=== PATIENT | female | born 1970 | race Caucasian/White ===

== ENCOUNTER 2020-06-25 23:29 | Observation (INO) ==
[2020-06-26] MEDS ORDERED: FAMOTIDINE 20MG IV PUSH 20 MG/5 ML SYR IV STA (00:14)
[2020-06-26] MEDS ORDERED: GI COCKTAIL ED USE PO ONE (00:14)
[2020-06-26] MEDS ORDERED: SODIUM CHLORIDE 0.9% 1000ML 1,000 ML IV SCH ×2 (00:15→10:21)
--- NOTE | 2020-06-26 01:06 | Emergency Department Note ---
History of Present Illness General Chief complaint: Illness Stated complaint: HEARTBURN Time Seen by Provider: 06/26/20 00:03 History of Present Illness Maximum Pain Intensity: 4 This is a 50-year-old female presenting to the emergency department for evaluation of epigastric pain radiating into her chest and neck for the past 24 hours. Patient states that she does have a history of GERD, and her symptoms do feel similar to previous exacerbations, however not for this length of time. She does take Pepcid on a daily basis, and contacted her primary care physician this afternoon who recommended additional [id number] medication which has not helped. The patient has not had shortness of breath, dyspnea, lower abdominal pain, fevers, or chills. She rates her current discomfort a 4/10. Last menstrual period was a week ago and she denies chance of . She does not have significant personal or family history of diabetes, early cardiac disease, or pulmonary disease. She has not had any recent travel history. Home Medications Medication Instructions Recorded Confirmed Type bupropion HCl 150 mg PO QAM 06/26/20 06/26/20 History bupropion HCl 300 mg PO QAM 06/26/20 06/26/20 History cetirizine [Zyrtec] 10 mg PO DAILY PRN 06/26/20 06/26/20 History famotidine 40 mg PO BID 06/26/20 06/26/20 History fluoxetine 20 mg PO QAM 06/26/20 06/26/20 History levothyroxine 112 mcg PO QAM 06/26/20 06/26/20 History liothyronine 25 mcg PO QAM 06/26/20 06/26/20 History multivitamin 1 tab PO QAM 06/26/20 06/26/20 History propranolol 40 mg PO BID 06/26/20 06/26/20 History Allergies Allergy/AdvReac Type Severity Reaction Status Date / Time SEASONAL Allergy Intermediate ITCHY Uncoded 06/26/20 01:13 EYES, SNEEZING, CONGESTION Past Med/Surg History Medical History (Updated 06/26/20 @ 06:21 by Noel Huerta PA-C) GERD (gastroesophageal reflux disease) Surgical History (Updated 06/26/20 @ 01:06 by Noel Huerta PA-C) No significant past surgical history Social History Smoking Status: Never smoker Feels Safe at Home: Yes Review of Systems A total of 10 systems reviewed and were otherwise negative Physical Exam Vital Signs Vital Signs - 24 hr 06/25/20 23:32 06/26/20 00:05 06/26/20 00:07 Temperature 36.5 C Temperature Source Temporal Artery Scan Pulse Rate 77 65 69 Pulse Rate from SpO2 Sensor 64 68 Respiratory Rate 16 20 16 Blood Pressure 188/71 H 181/89 H Blood Pressure Mean 110 119 Pulse Oximetry 96 98 98 Oxygen Delivery Method Sepsis Recent Fever Within 48 Hours No Sepsis New/Unexplained Change in Mental Status No Sepsis Action Taken by Nursing No Action Required 06/26/20 00:20 06/26/20 00:31 06/26/20 00:40 Temperature Temperature Source Pulse Rate 58 L 58 L 60 Pulse Rate from SpO2 Sensor 58 L 58 L Respiratory Rate 22 19 20 Blood Pressure 159/70 H Blood Pressure Mean 99 Pulse Oximetry 98 98 Oxygen Delivery Method Sepsis Recent Fever Within 48 Hours Sepsis New/Unexplained Change in Mental Status Sepsis Action Taken by Nursing 06/26/20 01:00 06/26/20 01:01 06/26/20 01:20 Temperature Temperature Source Pulse Rate 62 59 L 58 L Pulse Rate from SpO2 Sensor 62 61 58 L Respiratory Rate 28 H 18 16 Blood Pressure 174/69 H Blood Pressure Mean 104 Pulse Oximetry 100 99 100 Oxygen Delivery Method Sepsis Recent Fever Within 48 Hours Sepsis New/Unexplained Change in Mental Status Sepsis Action Taken by Nursing 06/26/20 01:23 06/26/20 01:30 06/26/20 01:40 Temperature Temperature Source Pulse Rate 60 64 Pulse Rate from SpO2 Sensor 58 L 64 Respiratory Rate 13 20 Blood Pressure 179/89 H Blood Pressure Mean 119 Pulse Oximetry 100 100 100 Oxygen Delivery Method Room Air Sepsis Recent Fever Within 48 Hours Sepsis New/Unexplained Change in Mental Status Sepsis Action Taken by Nursing 06/26/20 02:00 06/26/20 02:22 06/26/20 02:24 Temperature Temperature Source Pulse Rate 62 65 Pulse Rate from SpO2 Sensor 60 66 65 Respiratory Rate 14 18 Blood Pressure 178/108 H 175/85 H Blood Pressure Mean 131 115 Pulse Oximetry 99 100 100 Oxygen Delivery Method Sepsis Recent Fever Within 48 Hours Sepsis New/Unexplained Change in Mental Status Sepsis Action Taken by Nursing 06/26/20 02:30 06/26/20 03:00 06/26/20 03:30 Temperature Temperature Source Pulse Rate 64 61 79 Pulse Rate from SpO2 Sensor 64 63 67 Respiratory Rate 17 22 18 Blood Pressure 170/85 H 172/82 H 177/96 H Blood Pressure Mean 113 112 123 Pulse Oximetry 100 99 100 Oxygen Delivery Method Sepsis Recent Fever Within 48 Hours Sepsis New/Unexplained Change in Mental Status Sepsis Action Taken by Nursing 06/26/20 05:30 06/26/20 06:30 Temperature Temperature Source Pulse Rate 62 61 Pulse Rate from SpO2 Sensor 61 Respiratory Rate 18 15 Blood Pressure 159/90 H 156/82 H Blood Pressure Mean 113 106 Pulse Oximetry 95 95 Oxygen Delivery Method Room Air Sepsis Recent Fever Within 48 Hours Sepsis New/Unexplained Change in Mental Status Sepsis Action Taken by Nursing VITALS: Vitals are noted on the nurse's note and reviewed by myself. Vital signs stable. GENERAL: Well-developed, well-nourished, white female, who is in no acute distress and resting comfortably. Patient is cooperative with the examination. HEAD: Normocephalic atraumatic. NECK: Supple without nuchal rigidity. No lymphadenopathy. No thyromegaly. Cervical spine is nontender. HEART: Regular rate and rhythm without murmurs gallops or rubs. LUNGS: Clear to auscultation bilaterally without wheezes, rales or rhonchi. No retractions or accessory muscle use. ABDOMEN: Positive normal bowel sounds x 4. Soft with mild epigastric tenderness. No rebound or guarding. No lower abdominal tenderness. No CVA tenderness. MUSCULOSKELETAL: No muscle atrophy, erythema, or edema noted. Full range of motion in all extremities. NEURO: Patient was alert and oriented to person place and time. CN II through XII grossly intact. Course Administered Medications Morphine Sulfate (Morphine Sulfate 4 Mg/Ml 1 Ml Carp\Vial) 4 mg IV Q1H PRN PRN Reason: Pain Stop: 07/10/20 03:45 Last Admin: 06/26/20 06:45 Dose: 4 mg Documented by: [id number] Admin: 06/26/20 04:20 Dose: 4 mg Documented by: [id number] Discontinued Medications Al Hydrox/Mg Hydrox/Simethicone (Gi Cocktail Ed Use) 1 dose PO ONE ONE Stop: 06/26/20 00:15 Last Admin: 06/26/20 00:58 Dose: 1 dose Documented by: [id number] Sodium Chloride (Nss 1000ml) 1,000 mls @ 999 mls/hr IV .Q1H1M REAGAN Stop: 06/26/20 01:15 Last Infusion: 06/26/20 02:27 Dose: 0 mls/hr Documented by: [id number] Admin: 06/26/20 00:58 Dose: 999 mls/hr Documented by: [id number] Famotidine (Pepcid 20mg Iv Push) 20 mg in 5 mls @ 2.5 mls/min IV NOW STA Stop: 06/26/20 00:15 Last Admin: 06/26/20 00:58 Dose: 2.5 mls/min Documented by: [id number] Ioversol (Optiray 320 125ml) 119 ml IV ONCE ONE Stop: 06/26/20 02:23 Last Admin: 06/26/20 02:22 Dose: 119 ml Documented by: [id number] Ondansetron HCl (Ondansetron Inj 2 Mg/Ml 2 Ml Vial) 4 mg IV NOW STA Stop: 06/26/20 04:19 Last Admin: 06/26/20 04:20 Dose: 4 mg Documented by: [id number] Medical Decision Making Differential Diagnosis Differential diagnosis includes, but is not limited to: Myocardial infarction, dysrhythmia, pericarditis, pneumothorax, aortic aneurysm/dissection, DVT/PE, anxiety, GERD, PUD, electrolyte imbalance, thyroid disorder, pneumonia, bronchitis, pancreatitis, and others Laboratory Data Result diagrams: 06/26/20 00:45 06/26/20 00:45 Lab Results 06/26/20 06/26/20 06/26/20 Range/Units 00:45 00:45 00:45 WBC 17.29 H (4.8-10.8) K/uL RBC 4.07 L (4.2-5.4) M/uL Hgb 12.5 (12.0-16.0) g/dL Hct 36.3 L (37-47) % MCV 89.2 (80-100) fL MCH 30.7 (25-34) pg MCHC 34.4 (32-36) g/dL Plt Count 372 (130-400) K/uL Immature Gran % (Auto) 0.2 % Neut % (Auto) 78.2 % Lymph % (Auto) 14.3 % [place] % (Auto) 6.8 % Eos % (Auto) 0.3 % Baso % (Auto) 0.2 % Neut # (Auto) 13.53 H (1.4-6.5) K/uL Lymph # (Auto) 2.47 (1.2-3.4) K/uL [place] # (Auto) 1.17 H (0.11-0.59) K/uL Eos # (Auto) 0.05 (0-0.5) K/uL Baso # (Auto) 0.03 (0-0.2) K/uL Immature Gran # (Auto) 0.04 H (0.00-0.02) K/uL PT 9.6 (9.0-12.0) Seconds INR 0.9 (0.9-1.1) APTT 24.8 (21.0-31.0) Seconds PTT Ratio 0.9 D-Dimer 1690 H* (0-500) ug/L FEU Sodium 139 (136-145) mmol/L Potassium 3.1 L (3.5-5.1) mmol/L Chloride 105 (98-107) mmol/L Carbon Dioxide 26 (21-32) mmol/L Anion Gap 8.0 (3-11) BUN 8 (7-18) mg/dl Creatinine 0.85 (0.6-1.2) mg/dl Est Cr Clr Drug Dosing 93.8 ml/min Est GFR ( Amer) 92.0 Est GFR (Non-Af Amer) 79.3 BUN/Creatinine Ratio 9.9 L (10-20) Glucose 109 H (70-99) mg/dl Calcium 8.7 (8.5-10.1) mg/dl Magnesium 2.2 (1.8-2.4) mg/dl Total Bilirubin 0.6 (0.2-1) mg/dl AST 11 L (15-37) U/L ALT 18 (12-78) U/L Alkaline Phosphatase 103 (45-117) U/L Troponin I < 0.015 (0-0.045) ng/ml Total Protein 7.7 (6.4-8.2) gm/dl Albumin 3.8 (3.4-5.0) gm/dl Globulin 3.9 (2.5-4.0) gm/dl Albumin/Globulin Ratio 1.0 (0.9-2) Lipase 118 (73-393) U/L TSH 5.330 H (0.300-4.500) uIu/ml Free T4 0.78 L (0.8-1.6) ng/dl Imaging Data Radiologist's Impression: Preliminary Findings Only See Final Report For Complete Findings CTA CHEST: No evidence of pulmonary emboli or acute cardiopulmonary process. Preliminary Findings Only See Final Report For Complete Findings CT ABDOMEN & PELVIS With Contrast: Distended gallbladder with gallstones. No surrounding edema or fluid. No g allbladder wall thickening by CT. Otherwise unremarkable exam. Preliminary Findings Only See Final Report For Complete Findings US RUQ: Distended gallbladder with gallstones and gallbladder wall thickening at 4.6 mm. No surrounding fluid. No evidence of bile duct dilatation. ECG Data Attestation: I personally reviewed and interpreted this ECG as follows: Indication: + abdominal pain Additional Comments: Normal sinus rhythm @[address] elevation Normal ECG No previous ECGs available MDM Narrative Physical exam and history were performed. Nursing notes, EMR, and Medication List were personally reviewed. Patient appears to have epigastric abdominal/chest pain bringing her to the ER. She does not appear grossly toxic on examination and is afebrile. There is some reproducible discomfort in this area. IV access was established and labs were obtained. The patient was hydrated normal saline and given IV Pepcid and a GI cocktail. An order was placed for continuous cardiac monitoring. The monitor shows a rate of 79 with normal sinus rhythm. The patient's blood work is as above and was reviewed. She has a notably elevated white blood cell count of 17,000. She does not have a significant anemia or gross electrolyte imbalance. She does have increased neutrophils. INR is 0.9. Lipase and transaminases are not diagnostic. Glucose is 109. The patient does have a negative troponin x1. Her D-dimer is nearly 1700, and because of the elevated dimer and elevated white blood cell count I did elect to perform CT scan of both the chest as well as the abdomen and pelvis. CT scans were reviewed by myself and radiology. She does not appear to have acute findings within the chest, however she does appear to have a distended gallstone with cholelithiasis. Ultrasound was then performed and continues to raise concern for possible biliary etiology as she has a distended gallbladder with gallstones and wall thickening at 4.6 mm. Clinically her symptoms are concerning for biliary colic, and with the elevated white blood cell count I am concerned for developing cholecystitis. The case was discussed with the on-call surgeon, Dr. Patel, who agreed to evaluate the patient here in the emergency department. Please see his dictation for further patient course, plan, and disposition. The chart was completed utilizing [email or web address] Voice Recognition Software. Grammatical errors, random word insertions, pronoun errors, and incomplete sentences are an occasional consequence of this system due to software limitations, ambient noise, and hardware issues. Any formal questions or concerns about the content, text, or information contained within the body of this dictation should be directly addressed to the provider for clarification. . Impression & Plan Biliary colic, Epigastric abdominal pain, Elevated WBC count Discharge Plan Visit Data Chief Complaint: Illness Stated Complaint: HEARTBURN ED Provider: Cally Sy ED Midlevel Provider: Noel Huerta Discharge Problem: Biliary colic, Epigastric abdominal pain, Elevated WBC count Patient Disposition: Being Evaluated by Surgeon Forms Stand Alone Forms: [facility] Prescriptions Prescriptions: No Action cetirizine [Zyrtec] 10 mg Tablet 10 mg PO DAILY PRN (Reason: SEASONAL ALLERGIES) RF: 0 liothyronine 25 mcg tablet 25 mcg PO QAM RF: 0 famotidine 40 mg tablet 40 mg PO BID RF: 0 propranolol 40 mg tablet 40 mg PO BID RF: 0 fluoxetine 20 mg capsule 20 mg PO QAM RF: 0 levothyroxine 112 mcg tablet 112 mcg PO QAM RF: 0 bupropion HCl 300 mg tablet extended release 24 hr 300 mg PO QAM RF: 0 bupropion HCl 150 mg tablet extended release 24 hr 150 mg PO QAM RF: 0 multivitamin Tablet 1 tab PO QAM RF: 0 Referrals Referrals: Catie Goodson DO [Primary Care Provider] -
[2020-06-26 01:24] LABS: INR 0.9 (0.9-1.1); Partial Thromboplastin Ratio 0.9; Partial Thromboplastin Time 24.8 Seconds (21.0-31.0); Prothrombin Time 9.6 Seconds (9.0-12.0)
[2020-06-26 01:29] LABS: Alanine Aminotransferase 18 U/L (12-78); Albumin Level 3.8 gm/dl (3.4-5.0); Aspartate Aminotransferase 11 U/L (15-37); BUN Creatinine Ratio 9.9 (10-20); Basophils # (auto) 0.03 K/uL (0-0.2); Basophils % (auto) 0.2 %; Blood Urea Nitrogen 8 mg/dl (7-18); Calcium 8.7 mg/dl (8.5-10.1); Carbon Dioxide 26 mmol/L (21-32); Chloride 105 mmol/L (98-107); Creatinine Clr Calc Pharmacy 93.8 ml/min; Eosinophils # (auto) 0.05 K/uL (0-0.5); Eosinophils % (auto) 0.3 %; Est GFR (Non-African American) 79.3; Glucose 109 mg/dl (70-99); Hematocrit (blood only) 36.3 % (37-47); Hemoglobin 12.5 g/dL (12.0-16.0); Immature Granulocytes # (auto) 0.04 K/uL (0.00-0.02); Immature Granulocytes % (auto) 0.2 %; Lipase 118 U/L (73-393); Lymphocytes # (auto) 2.47 K/uL (1.2-3.4); Lymphocytes % (auto) 14.3 %; Magnesium 2.2 mg/dl (1.8-2.4); Mean Corpuscular Hemoglobin 30.7 pg (25-34); Mean Corpuscular Hgb Conc 34.4 g/dL (32-36); Mean Corpuscular Volume 89.2 fL (80-100); Monocytes # (auto) 1.17 K/uL (0.11-0.59); Monocytes % (auto) 6.8 %; Neutrophils # (auto) 13.53 K/uL (1.4-6.5); Neutrophils % (auto) 78.2 %; Platelet Count 372 K/uL (130-400); Potassium 3.1 mmol/L (3.5-5.1); Red Blood Count 4.07 M/uL (4.2-5.4); Sodium 139 mmol/L (136-145); White Blood Count 17.29 K/uL (4.8-10.8)
[2020-06-26 01:37] LABS: D Dimer 1690 ug/L FEU (0-500)
[2020-06-26 01:40] LABS: Alkaline Phosphatase 103 U/L (45-117); Bilirubin,Total 0.6 mg/dl (0.2-1); Globulin 3.9 gm/dl (2.5-4.0); Total Protein 7.7 gm/dl (6.4-8.2); Troponin I < 0.015 ng/ml (0-0.045)
[2020-06-26 01:53] LABS: T4 Free Thyroxine 0.78 ng/dl (0.8-1.6)
[2020-06-26] MEDS ORDERED: OPTIRAY 320 125ml IV ONE (02:22)
[2020-06-26] MEDS ORDERED: ONDANSETRON INJ 2 MG/ML 2 ML VIAL IV STA (04:18)
[2020-06-26] MEDS: MoRPHine SULFATE 4 MG/ML 1 ML CARP\\VIAL IV PRN ×3 (04:20→11:50)
--- NOTE | 2020-06-26 07:11 | CT Scan Report ---
CT OF THE ABDOMEN AND PELVIS WITH CONTRAST CLINICAL HISTORY: epigastric abd pain. Leukocytosis. COMPARISON STUDY: None. TECHNIQUE: Following IV administration of 119 mL of Optiray-320, axial images of the abdomen and pelv is were obtained from the lung bases to the proximal femurs. Images were reviewed in the axial, sagit claudio, and coronal planes. IV contrast was administered without complication. Automated exposure contr ol was utilized for the study. A dose lowering technique was utilized adhering to the principles of ALARA. CT DOSE: 1932.70 mGy.cm FINDINGS: Please note that the chest CT will be reported separately. No pneumatosis, free air or port al venous gas is present. The liver, spleen, adrenal glands, kidneys and pancreas are unremarkable. E xcreted contrast within the collecting systems is noted. The gallbladder is distended. There are gall stones within the gallbladder. There is gallbladder wall thickening with minimal adjacent infiltratio n. There is no biliary or pancreatic ductal dilatation patient. Major vasculature is patent. The salena leo and wall thickness of small and large bowel are normal. The appendix is normal. No acute fracture or suspicious lesion is identified within the visualized skeletal structures. IMPRESSION: Findings highly suggestive of acute cholecystitis. Findings discussed with Noel Huerta at time of dictation. ACT 112: Negative or not required by law. Electronically signed by: Benny Pierre M.D. 06/26/2020 7:09 AM
--- NOTE | 2020-06-26 07:18 | CT Scan Report ---
CHEST CTA for PULMONARY ARTERIES CT DOSE: HISTORY: Atypical chest pain. Elevated d-dimer. TECHNIQUE: Multiaxial CT images of the chest were performed following the intravenous administration of contrast to evaluate the pulmonary arteries. Maximal intensity projection images were also obtaine d. A dose lowering technique was utilized adhering to the principles of ALARA. COMPARISON STUDY: None. FINDINGS: Cholelithiasis with gallbladder wall thickening and trace pericholecystic fluid. This pari rning for acute cholecystitis. This is better appreciated on the same day abdomen and pelvis CT. The visualized adrenal glands and spleen are unremarkable. Normal esophagus. No mediastinal or hilar lymp hadenopathy. The heart is normal in size. No pleural or pericardial effusions. No suspicious lytic or blastic osseous lesions. The central airways are patent. The lungs are clear. Normal caliber thoraci c aorta with no evidence for dissection. No filling defects within the pulmonary arteries to suggest pulmonary embolus. IMPRESSION: 1. No evidence for pulmonary embolus. 2. Abnormal appearance to the gallbladder concerning for acute cholecystitis. This is better apprecia jeromy on the same day abdomen and pelvis CT. ACT 112: Negative or not required by law. Electronically signed by: Ham Lewis M.D. 06/26/2020 7:17 AM
--- NOTE | 2020-06-26 07:49 | XRay Report ---
XR chest 1V portable HISTORY: Right-sided chest pains. COMPARISON: None. FINDINGS: The lungs are clear. Cardiac silhouette is normal in size. No pleural effusions. No pneumot horax. IMPRESSION: No acute process. ACT 112: Negative or not required by law. Electronically signed by: Ham Lewis M.D. 06/26/2020 7:47 AM
--- NOTE | 2020-06-26 08:22 | Ultrasound Report ---
ULTRASOUND RIGHT UPPER QUADRANT ABDOMEN CLINICAL HISTORY: Epigastric abdominal pain. COMPARISON STUDY: Abdominal CT dated 06/26/2020. TECHNIQUE: Real-time, grayscale, and color flow sonography of the right upper quadrant of the abdomen was performed. Images are reviewed in the transverse and longitudinal planes. FINDINGS: Liver: The liver is normal in size and echotexture. There is no intrahepatic biliary ductal dilatatio n. The main portal vein is patent. Gallbladder: The gallbladder is distended and contains large shadowing calcified gallstones and bilia ry sludge. The gallbladder measures over 9 cm in length. The gallbladder wall is thickened and edemat ous measuring up to 5 mm. No pericholecystic fluid is seen. A sonographic Howard's sign could not be assessed as the patient reportedly received analgesia. The common bile duct measures up to 0.4 cm in diameter. Pancreas: Visualized portions of the pancreatic head and body are normal in appearance. Right kidney: Survey images of the right kidney demonstrate normal size and echotexture. There is no hydronephrosis. Ascites: None. IMPRESSION: 1. Cholelithiasis within a distended gallbladder. The gallbladder wall is thickened and edematous, an d findings are highly concerning for acute cholecystitis. Surgical consultation is advised. 2. There is no intra or extrahepatic biliary ductal dilatation. ACT 112: Negative or not required by law. Electronically signed by: Mateusz Harrell M.D. 06/26/2020 8:20 AM
--- NOTE | 2020-06-26 08:48 | History & Physical Report ---
Date of Service June 26, 2020 Assessment & Plan (1) Cholecystitis with cholelithiasis: Admission and Anticipated Discharge Date Admission Date: This patient's history of intermittent discomfort after eating fatty foods is consistent with biliary colic. By CT scan exam and ultrasound she now has most likely cholecystitis. Her white count is also elevated. I recommended removing her gallbladder. I explained the laparoscopic procedure and the possible need convert to an open procedure. I explained the possible complications associated with the procedure and answered her questions. She has signed a consent form. In the meantime we will put her in the hospital. Will splint analgesics as well as antibiotics. History of Present Illness Chief Complaint: Right upper quadrant abdominal pain Primary Care Provider: Catie Goodson DO This is a 50-year-old female who presented to the emergency room on recommendation from her primary care physician with a complaint of pain centered in the right upper quadrant. The patient for the last approximately 2 to 3 months has been having intermittent episodes of discomfort that she thought was indigestion. It did follow meals each time and fatty foods were worse than others. They would resolve after about the 2-hour timeframe however this most recent episode has not resolved. This episode began midnight 2 days ago. The pain is a dull pressure-like sensation with occasional increases in intensity and change to a sharp component. It is unrelenting. She had some nausea and had one episode of vomiting after being in the emergency room. She has not had a change in her bowel habits. She denies melena and hematochezia. She has no dysuria or hematuria. She was unaware of the fact that she had gallstones. Allergies Allergy/AdvReac Type Severity Reaction Status Date / Time SEASONAL Allergy Intermediate ITCHY Uncoded 06/26/20 01:13 EYES, SNEEZING, CONGESTION Home Medications Medication Instructions Recorded Confirmed Type bupropion HCl 150 mg PO QAM 06/26/20 06/26/20 History bupropion HCl 300 mg PO QAM 06/26/20 06/26/20 History cetirizine [Zyrtec] 10 mg PO DAILY PRN 06/26/20 06/26/20 History famotidine 40 mg PO BID 06/26/20 06/26/20 History fluoxetine 20 mg PO QAM 06/26/20 06/26/20 History levothyroxine 112 mcg PO QAM 06/26/20 06/26/20 History liothyronine 25 mcg PO QAM 06/26/20 06/26/20 History multivitamin 1 tab PO QAM 06/26/20 06/26/20 History propranolol 40 mg PO BID 06/26/20 06/26/20 History Past Med/Surg History Medical History (Updated 06/26/20 @ 08:50 by Kemar Patel MD) Depression GERD (gastroesophageal reflux disease) Hypothyroidism Surgical History (Updated 06/26/20 @ 08:46 by Kemar Patel MD) Presence of tooth-root and mandibular implants Social History Smoking Status: Never smoker Feels Safe at Home: Yes Review of Systems Review of Systems: All systems reviewed & are unremarkable except as noted in HPI & below Physical Exam Constitutional: no acute distress Neck: trachea midline Respiratory: normal respiratory effort, lungs clear to auscultation Cardiovascular: Rate/Rhythm: regular rate and regular rhythm Gastrointestinal (Abdomen): Inspection/Auscultation: normal bowel sounds; abdomen not distended Percussion/Palpation: + abdomen tender (Mild tenderness to moderate palpation in the right subcostal region) and abdomen soft Skin: no rashes, warm and dry Lymphatic: no cervical lymphadenopathy Results & Data Results & Data ([facility]) Vital Signs (Past 12 Hours) Vital Signs Temp Pulse Resp BP Pulse Ox 06/26/20 06:30 61 15 156/82 H 95 06/26/20 05:30 62 18 159/90 H 95 06/26/20 03:30 79 18 177/96 H 100 06/26/20 03:00 61 22 172/82 H 99 06/26/20 02:30 64 17 170/85 H 100 06/26/20 02:24 65 18 175/85 H 100 06/26/20 02:22 100 06/26/20 02:00 62 14 178/108 H 99 06/26/20 01:40 64 20 100 06/26/20 01:30 60 13 179/89 H 100 06/26/20 01:23 100 06/26/20 01:20 58 L 16 100 06/26/20 01:01 59 L 18 174/69 H 99 06/26/20 01:00 62 28 H 100 06/26/20 00:40 60 20 06/26/20 00:31 58 L 19 159/70 H 98 06/26/20 00:20 58 L 22 98 06/26/20 00:07 69 16 98 06/26/20 00:05 65 20 181/89 H 98 06/25/20 23:32 36.5 C 77 16 188/71 H 96 Laboratory Results 06/26/20 06/26/20 06/26/20 Range/Units 08:01 08:01 00:45 WBC (4.8-10.8) K/uL RBC (4.2-5.4) M/uL Hgb (12.0-16.0) g/dL Hct (37-47) % MCV (80-100) fL MCH (25-34) pg MCHC (32-36) g/dL Plt Count (130-400) K/uL Immature Gran % (Auto) % Neut % (Auto) % Lymph % (Auto) % [place] % (Auto) % Eos % (Auto) % Baso % (Auto) % Neut # (Auto) (1.4-6.5) K/uL Lymph # (Auto) (1.2-3.4) K/uL [place] # (Auto) (0.11-0.59) K/uL Eos # (Auto) (0-0.5) K/uL Baso # (Auto) (0-0.2) K/uL Immature Gran # (Auto) (0.00-0.02) K/uL PT (9.0-12.0) Seconds INR (0.9-1.1) APTT (21.0-31.0) Seconds PTT Ratio D-Dimer (0-500) ug/L FEU Sodium 139 (136-145) mmol/L Potassium 3.1 L (3.5-5.1) mmol/L Chloride 105 (98-107) mmol/L Carbon Dioxide 26 (21-32) mmol/L Anion Gap 8.0 (3-11) BUN 8 (7-18) mg/dl Creatinine 0.85 (0.6-1.2) mg/dl Est Cr Clr Drug Dosing 93.8 ml/min Est GFR ( Amer) 92.0 Est GFR (Non-Af Amer) 79.3 BUN/Creatinine Ratio 9.9 L (10-20) Glucose 109 H (70-99) mg/dl Calcium 8.7 (8.5-10.1) mg/dl Magnesium 2.2 (1.8-2.4) mg/dl Total Bilirubin 0.6 (0.2-1) mg/dl AST 11 L (15-37) U/L ALT 18 (12-78) U/L Alkaline Phosphatase 103 (45-117) U/L Troponin I < 0.015 (0-0.045) ng/ml Total Protein 7.7 (6.4-8.2) gm/dl Albumin 3.8 (3.4-5.0) gm/dl Globulin 3.9 (2.5-4.0) gm/dl Albumin/Globulin Ratio 1.0 (0.9-2) Lipase 118 (73-393) U/L TSH 5.330 H (0.300-4.500) uIu/ml Free T4 0.78 L (0.8-1.6) ng/dl COVID-19 Eval [facility] SARS-CoV-2, RNA, NAAT NEGATIVE (NEGATIVE) 06/26/20 06/26/20 Range/Units 00:45 00:45 WBC 17.29 H (4.8-10.8) K/uL RBC 4.07 L (4.2-5.4) M/uL Hgb 12.5 (12.0-16.0) g/dL Hct 36.3 L (37-47) % MCV 89.2 (80-100) fL MCH 30.7 (25-34) pg MCHC 34.4 (32-36) g/dL Plt Count 372 (130-400) K/uL Immature Gran % (Auto) 0.2 % Neut % (Auto) 78.2 % Lymph % (Auto) 14.3 % [place] % (Auto) 6.8 % Eos % (Auto) 0.3 % Baso % (Auto) 0.2 % Neut # (Auto) 13.53 H (1.4-6.5) K/uL Lymph # (Auto) 2.47 (1.2-3.4) K/uL [place] # (Auto) 1.17 H (0.11-0.59) K/uL Eos # (Auto) 0.05 (0-0.5) K/uL Baso # (Auto) 0.03 (0-0.2) K/uL Immature Gran # (Auto) 0.04 H (0.00-0.02) K/uL PT 9.6 (9.0-12.0) Seconds INR 0.9 (0.9-1.1) APTT 24.8 (21.0-31.0) Seconds PTT Ratio 0.9 D-Dimer 1690 H* (0-500) ug/L FEU Sodium (136-145) mmol/L Potassium (3.5-5.1) mmol/L Chloride (98-107) mmol/L Carbon Dioxide (21-32) mmol/L Anion Gap (3-11) BUN (7-18) mg/dl Creatinine (0.6-1.2) mg/dl Est Cr Clr Drug Dosing ml/min Est GFR ( Amer) Est GFR (Non-Af Amer) BUN/Creatinine Ratio (10-20) Glucose (70-99) mg/dl Calcium (8.5-10.1) mg/dl Magnesium (1.8-2.4) mg/dl Total Bilirubin (0.2-1) mg/dl AST (15-37) U/L ALT (12-78) U/L Alkaline Phosphatase (45-117) U/L Troponin I (0-0.045) ng/ml Total Protein (6.4-8.2) gm/dl Albumin (3.4-5.0) gm/dl Globulin (2.5-4.0) gm/dl Albumin/Globulin Ratio (0.9-2) Lipase (73-393) U/L TSH (0.300-4.500) uIu/ml Free T4 (0.8-1.6) ng/dl COVID-19 Eval Order SARS-CoV-2, RNA, NAAT (NEGATIVE) Diagnostic Findings CT OF THE ABDOMEN AND PELVIS WITH CONTRAST CLINICAL HISTORY: epigastric abd pain. Leukocytosis. COMPARISON STUDY: None. TECHNIQUE: Following IV administration of 119 mL of Optiray-320, axial images of the abdomen and pelvis were obtained from the lung bases to the proximal femurs. Images were reviewed in the axial, sagittal, and coronal planes. IV contrast was administered without complication. Automated exposure control was utilized for the study. A dose lowering technique was utilized adhering to the principles of ALARA. CT DOSE: 1932.70 mGy.cm FINDINGS: Please note that the chest CT will be reported separately. No pneumatosis, free air or portal venous gas is present. The liver, spleen, adrenal glands, kidneys and pancreas are unremarkable. Excreted contrast within the collecting systems is noted. The gallbladder is distended. There are gallstones within the gallbladder. There is gallbladder wall thickening with minimal adjacent infiltration. There is no biliary or pancreatic ductal dilata tion patient. Major vasculature is patent. The caliber and wall thickness of small and large bowel are normal. The appendix is normal. No acute fracture or suspicious lesion is identified within the visualized skeletal structures. IMPRESSION: Findings highly suggestive of acute cholecystitis. Findings discussed with Noel Huerta at time of dictation. ULTRASOUND RIGHT UPPER QUADRANT ABDOMEN CLINICAL HISTORY: Epigastric abdominal pain. COMPARISON STUDY: Abdominal CT dated 06/26/2020. TECHNIQUE: Real-time, grayscale, and color flow sonography of the right upper quadrant of the abdomen was performed. Images are reviewed in the transverse and longitudinal planes. FINDINGS: Liver: The liver is normal in size and echotexture. There is no intrahepatic biliary ductal dilatation. The main portal vein is patent. Gallbladder: The gallbladder is distended and contains large shadowing calcified gallstones and biliary sludge. The gallbladder measures over 9 cm in length. The gallbladder wall is thickened and edematous measuring up to 5 mm. No pericholecystic fluid is seen. A sonographic Howard's sign could not be assessed as the patient reportedly received analgesia. The common bile duct measures up to 0.4 cm in diameter. Pancreas: Visualized portions of the pancreatic head and body are normal in appearance. Right kidney: Survey images of the right kidney demonstrate normal size and echotexture. There is no hydronephrosis. Ascites: None. IMPRESSION: 1. Cholelithiasis within a distended gallbladder. The gallbladder wall is thickened and edematous, and findings are highly concerning for acute cholecystitis. Surgical consultation is advised. 2. There is no intra or extrahepatic biliary ductal dilatation.
[2020-06-26] MEDS ORDERED: MoRPHine SULFATE 2 MG/ML CARP IV PRN (10:21)
[2020-06-26] MEDS ORDERED: ONDANSETRON INJ 2 MG/ML 2 ML VIAL IV PRN (10:21)
[2020-06-26 11:25] LABS: Appearance Urine Clear (Clear); Bilirubin Urine Negative (Negative); Blood Urine Negative (Negative); Color Urine Yellow; Glucose Urine UA Negative (Negative); Ketones Urine Negative (Negative); Leukocyte Esterase Urine Negative (Negative); Nitrite Urine Negative (Negative); Protein Urine Negative (Negative); Specific Gravity Urine > 1.045 (1.000-1.030); Urobilinogen Urine Negative (Negative); pH Urine 5.5 (4.5-7.5)
[2020-06-26] MEDS: cefOXitin 2,000 MG in DEXTROSE 5% 50 ML IV SCH ×2 (13:14→18:36)
[2020-06-26] MEDS: FAMOTIDINE 40 MG TABLET PO SCH ×2 (13:15→20:13)
[2020-06-26] MEDS: LEVOTHYROXINE SODIUM 112 MCG TABLET PO SCH (13:15)
[2020-06-26] MEDS: PROPRANOLOL HCL 20 MG TAB PO SCH ×2 (13:15→21:18)
[2020-06-26] MEDS: LIOTHYRONINE SODIUM 25 MCG TAB PO SCH (13:16)
[2020-06-26] MEDS: SODIUM CHLOR 0.45% + 20MEQ KCL 20 MEQ/1,000 ML BAG IV SCH (16:52)
--- NOTE | 2020-06-26 17:22 | Surgery Progress Note ---
Date of Service June 26, 2020 Assessment & Plan (1) Cholecystitis with cholelithiasis: Due to scheduling in the OR today and possible late delayed till later this evening we recommended to proceed with surgery but will wait until morning this was discussed with the patient and she is agreeable to it risk and complication of surgery including conversion to an open procedure injury to other organs anticipated recovery time was all explained to the patient Potassium was 3.1 this morning we changed her IV fluids All questions were answered Permit was signed Present on Admission?: Yes Admission and Anticipated Discharge Date Admission Date: June 26, 2020 Subjective Feels better from he first came in earlier this morning Physical Exam Physical Exam: Alert coherent comfortable sitting up at side of bed The abdomen is completely benign there is no guarding right upper quadrant Results & Data ([facility]) Vital Signs (Past 12 Hours) Vital Signs Temp Pulse Resp BP BP Pulse Ox 06/26/20 15:18 36.6 C 20 142/85 H 95 06/26/20 10:23 37.1 C 18 171/81 H 96 06/26/20 09:59 37.1 C 18 170/85 H 94 06/26/20 09:00 58 L 16 154/80 H 95 06/26/20 08:40 61 15 93 06/26/20 08:30 61 15 145/89 H 93 06/26/20 08:20 63 16 93 06/26/20 08:01 66 15 96 06/26/20 08:00 64 15 159/87 H 94 06/26/20 07:40 73 18 95 06/26/20 07:30 65 15 140/76 93 06/26/20 07:20 71 18 96 06/26/20 07:00 66 15 139/74 94 06/26/20 06:30 61 15 156/82 H 95 06/26/20 05:30 62 18 159/90 H 95 PG Care Time/CCT Total # of Minutes Spent Total Time Spent with Patient: Total time spent is greater than 50% in coordination of care (as documented) at patient's floor/unit and/or counseling patient: Coding Level of Care Code 98404 Subseq Hosp Care Lvl 1 Diagnoses Cholecystitis with cholelithiasis K80.10
--- NOTE | 2020-06-26 18:01 | Electrocardiogram Report ---
Test Reason : Blood Pressure : / mmHG Vent. Rate : 065 BPM Atrial Rate : 065 BPM P-R Int : 154 ms QRS Dur : 110 ms QT Int : 434 ms P-R-T Axes : 056 018 021 degrees QTc Int : 451 ms Normal sinus rhythm Normal ECG No previous ECGs available Confirmed by Colin Hendrix ([id number]) on 06/26/2020 6:01:17 PM Referred By: REFERRED SELF Confirmed By:Colin Hendrix
[2020-06-26 18:02] LABS: Pregnancy Test, Urine Negative (Negative)
[2020-06-26] MEDS ORDERED: hydrALAZINE HCL 20 MG/ML VIAL IV PRN (20:25)
[2020-06-27] MEDS: cefOXitin 2,000 MG in DEXTROSE 5% 50 ML IV SCH ×4 (01:14→18:01)
[2020-06-27] MEDS: SODIUM CHLOR 0.45% + 20MEQ KCL 20 MEQ/1,000 ML BAG IV SCH ×3 (01:14→21:11)
[2020-06-27] MEDS ORDERED: PROPOFOL IV EMULSION 10 MG/ML 20 ML VIAL IV ONE (06:49)
[2020-06-27] MEDS ORDERED: DEXAMETHASONE SOD INJ 4 MG/ML VIAL ONE (06:49)
[2020-06-27] MEDS ORDERED: MIDAZOLAM HCL 1 MG/ML 2ML VIAL ONE (06:49)
[2020-06-27] MEDS ORDERED: LIDOCAINE HCL 2% 2 ML VIAL/AMP(20MG/ML) INFIL ONE (06:49)
[2020-06-27] MEDS ORDERED: ONDANSETRON INJ 2 MG/ML 2 ML VIAL ONE (06:49)
[2020-06-27] MEDS ORDERED: fentaNYL citrate 100 MCG/2 ML VIAL ONE (06:49)
[2020-06-27] MEDS ORDERED: ROCURONIUM BROMIDE 10 MG/ML 5 ML VIAL IV ONE (06:49)
[2020-06-27] MEDS ORDERED: LIDOCAINE/EPINEPHRINE 1% 20 ML VIAL ONE (07:04)
[2020-06-27 07:08] LABS: BUN Creatinine Ratio 7.2 (10-20); Calcium 8.4 mg/dl (8.5-10.1); Creatinine Clr Calc Pharmacy 96.1 ml/min; Est GFR (Non-African American) 82.9; Potassium 3.9 mmol/L (3.5-5.1)
--- NOTE | 2020-06-27 07:08 | History & Physical Bridge Note ---
Date of Service June 27, 2020 History & Physical Bridge Note I have examined the patient, reviewed the History & Physical and in the interval since the performance of the History & Physical I have noted the following changes of clinical significance: no changes noted Patient pretty much had an uneventful night still has some right upper quadrant discomfort no nausea or vomiting abdominal exam unchanged from yesterday we will proceed with surgery as outlined yesterday they are going to call her from the OR soon
[2020-06-27] MEDS: FAMOTIDINE 40 MG TABLET PO SCH ×2 (07:13→20:08)
[2020-06-27] MEDS: LEVOTHYROXINE SODIUM 112 MCG TABLET PO SCH (07:14)
[2020-06-27] MEDS: LIOTHYRONINE SODIUM 25 MCG TAB PO SCH (07:14)
[2020-06-27] MEDS: PROPRANOLOL HCL 20 MG TAB PO SCH ×2 (07:14→20:08)
--- NOTE | 2020-06-27 07:20 | Anesthesiology Consultation ---
Date of Service June 27, 2020 Assessment & Plan (1) Encounter for pre-operative examination: Chart Review Chart Review: Acceptable Risk for Surgery History Surgery Operation Date: 06/27/20 07:30 Proposed Procedures p Laparoscopic Cholecystectomy with Cholangiogram - Bayron Vargas MD Height/Weight Height: 5 ft 6 in Weight: 98.5 kg Allergies Allergy/AdvReac Type Severity Reaction Status Date / Time SEASONAL Allergy Intermediate ITCHY Uncoded 06/26/20 01:13 EYES, SNEEZING, CONGESTION Medications Home Medications Medication Instructions Recorded Confirmed Last Taken bupropion HCl 150 mg PO QAM 06/26/20 06/26/20 06/25/20 bupropion HCl 300 mg PO QAM 06/26/20 06/26/20 06/25/20 cetirizine [Zyrtec] 10 mg PO DAILY PRN 06/26/20 06/26/20 Unknown famotidine 40 mg PO BID 06/26/20 06/26/20 06/25/20 08:00 fluoxetine 20 mg PO QAM 06/26/20 06/26/20 06/25/20 levothyroxine 112 mcg PO QAM 06/26/20 06/26/20 06/25/20 liothyronine 25 mcg PO QAM 06/26/20 06/26/20 06/25/20 multivitamin 1 tab PO QAM 06/26/20 06/26/20 06/25/20 propranolol 40 mg PO BID 06/26/20 06/26/20 06/25/20 08:00 Active Medications Generic Name Dose Route Start Last Admin Trade Name Freq PRN Reason Stop Dose Admin Famotidine 40 mg 06/26/20 11:45 06/27/20 07:13 Famotidine 40 Mg Tablet PO 07/26/20 11:44 40 mg BID REAGAN Administration Hydralazine HCl 10 mg 06/26/20 20:25 06/26/20 21:18 Hydralazine Hcl 20 Mg/Ml Vial IV 07/26/20 20:24 10 mg Q6H PRN Administration FOR SBP >150 Cefoxitin Sodium 2,000 mg/ 60 mls @ 100 mls/hr 06/26/20 12:00 06/27/20 06:22 Dextrose IV 07/06/20 11:59 Infused Q6H REAGAN Infusion Potassium Chloride/Sodium Chloride 20 meq in 1,000 mls @ 125 mls/hr 06/26/20 15:45 06/27/20 01:14 1/2 Nss + 20meq Kcl 1000ml IV 07/26/20 15:44 125 mls/hr .Q8H REAGAN Administration Levothyroxine Sodium 112 mcg 06/26/20 11:45 06/27/20 07:14 Levothyroxine Sodium 112 Mcg Tablet PO 07/26/20 11:44 112 mcg QAM REAGAN Administration Liothyronine Sodium 25 mcg 06/26/20 11:45 06/27/20 07:14 Liothyronine Sodium 25 Mcg Tab PO 07/26/20 11:44 25 mcg QAM REAGAN Administration Morphine Sulfate 4 mg 06/26/20 10:21 06/26/20 11:50 Morphine Sulfate 4 Mg/Ml 1 Ml Carp\Vial IV 07/10/20 10:20 4 mg Q3H PRN Administration Pain (6,7,8,9,10) Propranolol HCl 40 mg 06/26/20 11:45 06/27/20 07:14 Propranolol Hcl 20 Mg Tab PO 07/26/20 11:44 40 mg BID REAGAN Administration NPO Date Last Intake of Fluids: 06/26/20 Time Last Intake of Fluids: 23:59 Past Medical History Medical History (Updated 06/27/20 @ 07:19 by Dennis Camejo MD) Anemia Depression GERD (gastroesophageal reflux disease) Hypothyroidism Past Surgical History Surgical History Presence of tooth-root and mandibular implants Social History Smoking Status: Never smoker Hx Alcohol Use: Yes Alcohol type: beer, wine and hard liquor alcohol intake frequency: a few times a month Hx Substance Use: No substance use type: does not use Physical Exam Vital Signs Last Vital Signs Temp 36.9 C 06/27/20 01:31 Pulse 65 06/27/20 01:31 Resp 18 06/27/20 01:31 BP 139/80 06/27/20 01:31 Pulse Ox 98 06/27/20 01:31 Testing Laboratory Results 06/26/20 00:45 06/27/20 05:37 PT 9.6 Seconds (9.0-12.0) 06/26/20 00:45 INR 0.9 (0.9-1.1) 06/26/20 00:45 APTT 24.8 Seconds (21.0-31.0) 06/26/20 00:45 Urine Color Yellow 06/26/20 11:12 Urine Appearance Clear (Clear) 06/26/20 11:12 Urine pH 5.5 (4.5-7.5) 06/26/20 11:12 Ur Specific [place] > 1.045 (1.000-1.030) H 06/26/20 11:12 Urine Protein Negative (Negative) 06/26/20 11:12 Urine Glucose (UA) Negative (Negative) 06/26/20 11:12 Urine Ketones Negative (Negative) 06/26/20 11:12 Urine Nitrite Negative (Negative) 06/26/20 11:12 Ur Leukocyte Esterase Negative (Negative) 06/26/20 11:12 Urine Test Negative (Negative) 06/26/20 16:30 06/26/20 16:30 Urine Test Negative Electrocardiogram Date: 06/25/20 Findings: + NSR @ (65) Chest X-Ray Date: 06/26/20 Findings: + NAD
[2020-06-27] MEDS ORDERED: PROMETHAZINE HCL 12.5 MG in SODIUM CHLORIDE 0.9% 50 ML IV PRN (07:43)
[2020-06-27] MEDS ORDERED: ATROPINE SULFATE 0.1 MG/ML 10ML SYR IV PRN (07:43)
[2020-06-27] MEDS ORDERED: ONDANSETRON INJ 2 MG/ML 2 ML VIAL IV PRN (07:43)
[2020-06-27] MEDS ORDERED: fentaNYL citrate 100 MCG/2 ML VIAL IV PRN (07:43)
[2020-06-27] MEDS ORDERED: KETOROLAC 30 MG/ML VIAL IV PRN (07:43)
[2020-06-27] MEDS ORDERED: LABETALOL HCL IV 5 MG/ML 20ML IV PRN (07:43)
--- NOTE | 2020-06-27 09:46 | Post Operative Brief Note ---
PG Immediate Post Op with CF Date of Surgery June 27, 2020 Pre & Post Diagnosis Operation Date: 06/27/20 07:30 Pre-Op Diagnosis: Cholecystitis with cholelithiasis Post-Op Diagnosis: Cholecystitis with cholelithiasis I identified the patient and participated in the time-out.: Yes Procedure Operation Date: 06/27/20 07:30 Actual Procedures p Laparoscopic Cholecystectomy with Cholangiogram(Not Applicable) - Bayron Vargas MD Surgeon Bayron Vargas MD [employer] 0 Estimated Blood Loss 20 Findings Consistent with Post-Op Diagnosis Specimens Specimen Description: Permanent A. Gallbladder and contents Culture 1. Gallbladder culture
[2020-06-27] MEDS ORDERED: OPTIRAY 300 INJ ONE (09:52)
[2020-06-27] MEDS ORDERED: GLYCOPYRROLATE 0.2 MG/ML VIAL ONE (10:06)
[2020-06-27] MEDS ORDERED: NEOSTIGMINE METHYLSULFATE 5 MG/5 ML SYR ONE (10:06)
--- NOTE | 2020-06-27 10:06 | Operative Report ---
PG Post Operative Report Pre & Post Diagnosis Operation Date: 06/27/20 07:30 Pre-Op Diagnosis: Cholecystitis with cholelithiasis Post-Op Diagnosis: Cholecystitis with cholelithiasis I identified the patient and participated in the time-out.: Yes Procedure Operation Date: 06/27/20 07:30 Actual Procedures p Laparoscopic Cholecystectomy with Cholangiogram(Not Applicable) - Bayron Vargas MD The patient was brought into the operating theater general endotracheal anesthesia supine position the abdomen prepped byline solution properly draped a ntibiotics already on board timeout this had the patient was identified made a small incision supraumbilically sufficient enough to place a Veress needle followed by CO2 followed by 5 mm trocar point of interest back to no injury identified and the fractionization we placed a 5 mm epigastric port with 2 5 mm subcostal ports with preemptive local analgesic the patient had a quite a significant abdominal wall lipomatous tissue the needle was barely going through enter the abdomen the 5 Postel cords were all directly placed on direct visualization gallbladder was identified it was tense acutely inflamed using the lateral port really placed under traction the patient was placed in reverse Trendelenburg position rotated to the left but we felt that needed to be aspirated therefore the aspirating needle was positioned in the fundus of the gallbladder aspirated out was was thick bile green once we had deflated enough that we were able to grasp it we then we worked her way down towards the neck of the gallbladder and we worked it we thought we were at the neck of the gallbladder was actually was still in the midportion since patient has significant amount of fatty tissue and duodenum with was finally adherent to the this undersurface once we freed this up we noticed that we were still probably in distal two thirds aspect of the gallbladder a vessel on top of this was identified appear to be the artery which we freed that up it bifurcated and divided with clips and divided at this point and necessitated to place a retractor through a separate stab wound between the epigastric umbilical area and the left upper quadrant area direct visualization then we worked our way down towards the zina hepatis and indeed we identified that the patient had what appeared to be a stone in the neck of the gallbladder as we freed this up easily this area plane of dissection appear to be much freer than the operative aspect as it normally is we then identified the cystic artery more proximally and mobilized the doubly clipped proximally once distally and divided the cystic duct was similarly identified actually was short and seem like it was point up on a common bile duct but we took it all the way out to the beginning of it in the gallbladder neck we placed a clip on her 5 mm clip then used #4 ureteral catheter transversing abdominal wall and a 14 Angiocath position the cystic duct x-rays were taken which showed free flow and duodenum no obstruction and we were well aware from the common bile duct Cholangiocath was then removed and the cystic duct was triply clipped and divided gallbladder took it out in antegrade fashion which was quite thickened and sclerotic took some time we did mostly with scissors and cautery they were able to elevated completely from the liver. We at this point needed to enlarge the 5 mm epigastric port to 11 mm so we could accommodate all the stents gallbladder to be extracted from the abdomen which we did the gallbladder was needed in Endopouch prior to taking it out from the area we checked the subcostal area for bleeding and appears satisfactory gallbladder was taken out intact and fractured through the epigastric area trocar #11 trocar was placed back in position held in place with a towel clip we then copiously irrigated the subhepatic suprahepatic issue with appear quite satisfactory hemostasis minimally oozing. I elected to drain the area with a #19 Simba drain bringing out the epigastric area taken out the lateral port site fascia skin edge with 2-0 silk placed in the subhepatic lead. Prior to taking individual trochars out we inspected and there was no bleeding identified in all of them and that is the umbilical trocar wounds were closed by folds suturing the Simba drain to the skin edge with 2-0 silk suture 4-0 Monocryl for the remaining subcostal in the left upper and umbilical area but epigastric area was closed with 2-0 Vicryl and Monocryl Steri-Strips applied procedure was tolerated well by the patient estimated blood loss approximately 25 cc Surgeon Bayron Vargas MD [employer] 0 Estimated Blood Loss 20 Findings Consistent with Post-Op Diagnosis Specimens gallbladder and contents Description of Procedure merda I attest to the content of the Intraoperative Record and any orders documented therein. Any exceptions are noted below.
[2020-06-27] MEDS ORDERED: CETIRIZINE HCL 10 MG TABLET PO PRN (10:44)
--- NOTE | 2020-06-27 13:56 | Fluoroscopy Report ---
INTRAOPERATIVE RADIOGRAPH CLINICAL HISTORY: Intraoperative cholangiogram. Cholecystectomy. Fluoroscopy time: 2 seconds FINDINGS: A single spot fluoroscopic view of the right upper quadrant is presented. Correlation is ma edgar with abdominal ultrasound dated 06/26/2020. The gallbladder is surgically absent. There is smooth c ontrast opacification of the common bile duct with free spillage of contrast into the duodenum. No in traluminal filling defects are identified to suggest choledocholithiasis. There is no intrahepatic bi liary ductal dilatation. IMPRESSION: Intraoperative cholangiogram image as above. There is no evidence of choledocholithiasis. Electronically signed by: Mateusz Harrell M.D. 06/27/2020 1:54 PM
[2020-06-27] MEDS: oxyCODONE/ACETAMINOPHEN 5mg/325mg TAB PO PRN ×2 (14:04→18:02)
[2020-06-27] MEDS: MoRPHine SULFATE 4 MG/ML 1 ML CARP\\VIAL IV PRN (16:41)
[2020-06-27] MEDS ORDERED: COUGH DROP (SUGAR FREE) LOZ 24 LOZ/1 BOX BUCCAL PRN (19:51)
[2020-06-27] MEDS ORDERED: COUGH DROP (SUGAR FREE) LOZ 24 LOZ/1 BOX BUCCAL ONE (20:05)
[2020-06-28] MEDS: cefOXitin 2,000 MG in DEXTROSE 5% 50 ML IV SCH (00:34)
[2020-06-28] MEDS: SODIUM CHLOR 0.45% + 20MEQ KCL 20 MEQ/1,000 ML BAG IV SCH (01:26)
--- NOTE | 2020-06-28 05:13 | Surgery Progress Note ---
Date of Service June 28, 2020 Assessment & Plan (1) Cholecystitis with cholelithiasis: Operative findings were discussed with the patient including the severity of the gallbladder inflammation With this I recommended we keep the Simba drain in have her follow-up in the office this Monday for removal Instructions were given regarding showering driving and lifting We will send her home on some Augmentin for the next 5 days cultures of the gallbladder are still pending All questions were answered Present on Admission?: Yes Admission and Anticipated Discharge Date Admission Date: June 26, 2020 Subjective Under good night feel better than before surgery states she was unable to sleep in this bed even though it is uncomfortable tolerated some oral intake yesterday no nausea Physical Exam Physical Exam: Is alert coherent laying comfortable in no distress Simba drainage serous sanguinous nonbilious minimal amounts The abdomen is completely benign with the expected discomfort from recent surgery Sclerae nonicteric Results & Data ([facility]) Vital Signs (Past 12 Hours) Vital Signs Temp Pulse Pulse Resp BP Pulse Ox 06/28/20 04:14 36.9 C 65 14 107/66 94 06/27/20 22:14 36.6 C 65 18 125/75 98 06/27/20 20:11 75 131/82 PG Care Time/CCT Total # of Minutes Spent Total Time Spent with Patient: Total time spent is greater than 50% in coordination of care (as documented) at patient's floor/unit and/or counseling patient: Coding Level of Care Code None Diagnoses Cholecystitis with cholelithiasis K80.10
[2020-06-28 06:12] LABS: Basophils # (auto) 0.02 K/uL (0-0.2); Basophils % (auto) 0.1 %; Eosinophils # (auto) 0.09 K/uL (0-0.5); Eosinophils % (auto) 0.7 %; Hematocrit (blood only) 34.7 % (37-47); Hemoglobin 11.7 g/dL (12.0-16.0); Immature Granulocytes # (auto) 0.03 K/uL (0.00-0.02); Immature Granulocytes % (auto) 0.2 %; Lymphocytes # (auto) 2.82 K/uL (1.2-3.4); Lymphocytes % (auto) 20.5 %; Mean Corpuscular Hemoglobin 30.6 pg (25-34); Mean Corpuscular Hgb Conc 33.7 g/dL (32-36); Mean Corpuscular Volume 90.8 fL (80-100); Monocytes # (auto) 1.51 K/uL (0.11-0.59); Neutrophils # (auto) 9.28 K/uL (1.4-6.5); Neutrophils % (auto) 67.5 %; Platelet Count 319 K/uL (130-400); RDW Coefficient of Variation 13.1 % (11.5-14.5); RDW Standard Deviation 43.3 fL (36.4-46.3); Red Blood Count 3.82 M/uL (4.2-5.4); White Blood Count 13.75 K/uL (4.8-10.8)
[2020-06-28 06:42] LABS: BUN Creatinine Ratio 11.5 (10-20); Calcium 8.3 mg/dl (8.5-10.1); Creatinine Clr Calc Pharmacy 107.9 ml/min; Est GFR (African American) 110.5; Est GFR (Non-African American) 95.4
[2020-06-28] MEDS: LIOTHYRONINE SODIUM 25 MCG TAB PO SCH (08:02)
[2020-06-28] MEDS: LEVOTHYROXINE SODIUM 112 MCG TABLET PO SCH (08:02)
[2020-06-28] MEDS: FAMOTIDINE 40 MG TABLET PO SCH (08:03)
[2020-06-28] MEDS: PROPRANOLOL HCL 20 MG TAB PO SCH (08:03)
[2020-06-28] MEDS: oxyCODONE/ACETAMINOPHEN 5mg/325mg TAB PO PRN (08:04)
[2020-06-28] MEDS ORDERED: FLUoxetine HCL 20 MG CAP PO SCH (09:00)
[2020-06-28] MEDS ORDERED: buPROPion XL 150 MG TABCR PO SCH (09:00)
[2020-06-28] MEDS ORDERED: buPROPion XL 300 MG TABCR PO SCH (09:00)
--- NOTE | 2020-06-29 07:59 | Anesthesiology Progress Note ---
Date of Service June 29, 2020 Anesthesia Post Procedure Pain Intensity Anterior Chest: Pain Intensity: 3 Abdomen: Pain Intensity: 5 Transfer of Care Handoff Completed per policy Notes Mental Status: alert / awake / arousable Patient Amnestic to Procedure: Yes Nausea / Vomiting: adequately controlled Pain: adequately controlled Airway Patency, RR, SpO2: stable & adequate BP & HR: stable & adequate Hydration State: stable & adequate Anesthetic Complications: no major complications apparent
--- NOTE | 2020-06-30 00:38 | Discharge Summary (DS) ---
ADMISSION DIAGNOSIS: Cholecystitis. DISCHARGE DIAGNOSIS: Cholecystitis. HOSPITAL COURSE: This is a 50-year-old female who presented to the Emergency Room on date of admission secondary to right upper quadrant abdominal pain. The patient underwent imaging studies including CT scan as well as ultrasound that showed concern for cholecystitis. The patient ultimately underwent a laparoscopic cholecystectomy by Dr. Vargas on 06/27/2020. The following day, she was doing well, tolerating oral intake. She was felt to be deemed stable for discharge home on postoperative day #1. Of note, the patient did have a drain in place. The patient was instructed on proper wound care, diet, and activity. She was provided with a prescription for Augmentin for 14 days twice daily. She will follow up with Dr. Vargas in approximately 1 week.
== END 2020-06-28 10:23 | disposition home or self-care (01) ==
LOC: 3N 23:29 → ED 23:29 → 3N 06-26 09:57